=== PATIENT | male | born 1950 | race American Indian/Alaskan Native ===

== ENCOUNTER 2016-11-23 09:33 | Inpatient (IN) | payer MEDICARE ==
[2016-11-23 10:17] LABS: Basophils % (Auto) 0.6 % (0.0-1.8); Eosinophils % (Auto) 3.3 % (0.0-4.3); Hematocrit 41.1 % (35.5-45.6); Hemoglobin 13.4 gm/dl (11.8-15.2); Mean Corpuscular HGB Conc 33 % (32-34); Mean Corpuscular Hemoglobin 28 pg (28-32); Mean Corpuscular Volume 86 fl (84-94); Platelet Count 357 K/mm3 (140-440); Red Blood Count 4.78 M/mm3 (3.65-5.03); Red Cell Distribution Width 14.4 % (13.2-15.2); White Blood Count 6.9 K/mm3 (4.5-11.0)
[2016-11-23 11:02] LABS: Alanine Aminotransferase 13 units/L (7-56); Albumin 4.1 g/dL (3.9-5); Albumin/Globulin Ratio 1.4 %; Alkaline Phosphatase 43 units/L (35-129); Anion Gap 15 mmol/L; Blood Urea Nitrogen 14 mg/dL (9-20); Calcium 9.3 mg/dL (8.4-10.2); Carbon Dioxide 25 mmol/L (22-30); Chloride 103.4 mmol/L (98-107); Glucose 96 mg/dL (75-100); Lipase 24 units/L (13-60); Potassium 4.3 mmol/L (3.6-5.0); Sodium 139 mmol/L (137-145); Total Protein 7.1 g/dL (6.3-8.2)
[2016-11-23] MEDS ORDERED: MORPHINE IV ONE ×2 (11:10→18:33)
[2016-11-23] MEDS ORDERED: PEPCID IV ONE (11:11)
--- NOTE | 2016-11-23 11:13 | Emergency Department Report ---
HPI - General Chief Complaint: GI Bleed Time Seen by Provider: 11/23/16 10:44 - HPI HPI: This is a 65-year-old -F[place]ish male presents to the emergency department with complaint of rectal bleeding and/or GI bleed. The patient says that he is having some mild lower abdominal discomfort over the past 2 weeks. He recently went to see his PCP, Dr. Rocha, gave him something for pain. However the patient woke up this morning and had a bowel movement with bright red blood and then another bowel movement shortly afterwards that appeared to be more like dark tarry stools. He went back to see the primary care physician who allegedly did a sigmoid scope and saw diverticular hemorrhage. The patient has a history of this in the past and has required 2 admissions in the past for these symptoms. He denies any nausea, vomiting, fever but he does have some mild lower abdominal pain with radiation towards the back. He denies any numbness or paresthesias or any neurological deficits. No recent travel or sick contacts at home. He also has a history of hypertension. ED Past Medical Hx - Past Medical History Hx Hypertension: Yes Hx Congestive Heart Failure: No Hx GERD: Yes Hx Asthma: No Hx COPD: No Additional medical history: DIVERTICULOSIS OF LARGE INTESTINE WITH HEMORRHAGE - Surgical History Past Surgical History?: No - Social History Smoking Status: Current Every Day Smoker Substance Use Type: Alcohol, Prescribed - Medications Home Medications: Home Medications Medication Instructions Recorded Confirmed Last Taken Type Lisinopril [Zestril TAB] 20 mg PO QDAY 01/10/15 11/23/16 11/22/16 History Sildenafil Citrate [Viagra] 25 mg PO DAILY 11/23/16 11/23/16 11/09/16 History ED Review of Systems ROS: Stated complaint: ABD PAIN Other details as noted in HPI Comment: All other systems reviewed and negative Constitutional: denies: chills, fever Eyes: denies: eye pain, eye discharge, vision change ENT: denies: ear pain, throat pain Respiratory: denies: cough, shortness of breath, wheezing Cardiovascular: denies: chest pain, palpitations Gastrointestinal: abdominal pain, other (GI bleed). denies: nausea, vomiting Genitourinary: denies: urgency, dysuria Musculoskeletal: denies: joint swelling, arthralgia Skin: denies: rash, lesions Neurological: denies: headache, weakness, paresthesias Physical Exam - Physical Exam Vital Signs: Vital Signs 11/23/16 09:41 Temperature 97.3 F L Pulse Rate 51 L Respiratory 18 Rate Blood Pressure 162/96 O2 Sat by Pulse 97 Oximetry Physical Exam: GENERAL: The patient is well-developed well-nourished. HEENT: Normocephalic. Atraumatic. Extraocular motions are intact. Patient has moist mucous membranes. Pupils equal reactive to light bilaterally. NECK: Supple. Trachea is midline. CHEST/LUNGS: Clear to auscultation. There is no respiratory distress noted. HEART/CARDIOVASCULAR: Regular. There is mild bradycardia. There is no gallop rub or murmur. ABDOMEN: Abdomen is soft, nontender. Patient has normal bowel sounds. There is no abdominal distention. SKIN: Skin is warm and dry. NEURO: The patient is awake, alert, and oriented. The patient is cooperative. The patient has no focal neurologic deficits. The patient has normal speech. MUSCULOSKELETAL: There is no tenderness or deformity. There is no limitation range of motion. There is no evidence of acute injury. Rectal: Deferred ED Course Vital Signs 11/23/16 09:41 Temperature 97.3 F L Pulse Rate 51 L Respiratory 18 Rate Blood Pressure 162/96 O2 Sat by Pulse 97 Oximetry ED Medical Decision Making - Lab Data Result diagrams: 11/23/16 10:04 11/23/16 10:04 - EKG Data -: EKG Interpreted by Pa EKG shows normal: sinus rhythm, axis, intervals, QRS complexes, ST-T waves Rate: bradycardia (41 bpm) - EKG Data When compared to previous EKG there are: previous EKG unavailable Interpretation: other (marked sinus bradycardia) - Radiology Data Radiology results: report reviewed CT of the abdomen and pelvis with IV contrast was read by radiology as essentially a normal examination. - Medical Decision Making 65-year-old male presents emergency Department with a few weeks of some abdominal discomfort but really came in today because of rectal bleeding that appeared to be a diverticular hemorrhage at his PCPs office. Most the labs unremarkable. CT does not show any signs of diverticulitis, malignancy or any other acute process. Patient's only does not appear to need any type of transfusion at this time. However while the patient is in the emergency department he has had significant bradycardia going down into the 30s, all while awake, and is not on any type of beta amish or calcium channel amish or anything for rate control. This reason the patient will be admitted to the hospital for further evaluation and has been accepted for admission by the hospitalist, Dr. Tello. - Differential Diagnosis diverticulosis, diverticulitis, malignancy, colitis Critical Care Time: No Critical care attestation.: If time is entered above; I have spent that time in minutes in the direct care of this critically ill patient, excluding procedure time. ED Disposition Clinical Impression: Rectal bleeding, Bradycardia Hypertension Qualifiers: Hypertension type: essential hypertension Qualified Code(s): I10 - Essential ( primary) hypertension Disposition: 09 OP ADMIT IP TO THIS HOSP Is pt being admited?: Yes Does the pt Need Aspirin: No Condition: Stable Instructions: Hypertension (ED) Referrals: PRIMARY CARE, [Primary Care Provider] - 3-5 Days Forms: Accompanied Note Time of Disposition: 15:32
[2016-11-23 11:15] LABS: Bacteria,Urine 1+ /HPF (Negative); Bilirubin,Urine NEG (Negative); Blood,Urine NEG (Negative); Ketones,Urine NEG (Negative); Leukocyte Esterase,Urine NEG (Negative); Mucus,Urine FEW /HPF; Nitrite,Urine NEG (Negative); Protein,Urine <15 mg/dL mg/dL (Negative); Urobilinogen,Urine < 2.0 mg/dL (<2.0)
[2016-11-23 11:20] LABS: WBC,Urine < 1.0 /HPF (0.0-6.0)
[2016-11-23] MEDS ORDERED: NACL ONE ×2 (11:36→12:22)
--- NOTE | 2016-11-23 13:17 | Cat Scan Report ---
CT scan of abdomen and pelvis with IV contrast: History: Abdominal pain. Findings: Normal lung bases. No pleural or pericardial effusion. Normal liver spleen pancreas and gallbladder. Normal adrenals kidney parenchyma and bladder. No free intraperitoneal fluid or air. Prostate measures 3.3 x 4.1 cm. Gaseous colon with small volume stool in colon. No evidence of appendicitis or diverticulitis. Impression: Essentially negative CT scan of abdomen and CT scan of pelvis.
[2016-11-23 15:16] LABS: INR 1.13 (0.87-1.13)
[2016-11-23] MEDS ORDERED: APRESOLINE ONE (15:58)
[2016-11-23] MEDS ORDERED: MORPHINE ONE (18:32)
--- NOTE | 2016-11-23 21:11 | History and Physical Report ---
History of Present Illness Date of examination: 11/23/16 Date of admission: 11/23/16 17:57 Chief complaint: BRBPR 1 day History of present illness: HPI: This is a 65-year-old -[place]aur[place] male presents to the emergency department with complaint of rectal bleeding and/or GI bleed. The patient says that he is having some mild lower abdominal discomfort over the past 2 weeks. He recently went to see his PCP, Dr. Rocha, gave him something for pain. However the patient woke up this morning and had a bowel movement with bright red blood and then another bowel movement shortly afterwards that appeared to be more like dark tarry stools. He went back to see the primary care physician who allegedly did a sigmoid scope and saw diverticular hemorrhage. The patient has a history of this in the past and has required 2 admissions in the past for these symptoms. He denies any nausea, vomiting, fever but he does have some mild lower abdominal pain with radiation towards the back. He denies any numbness or paresthesias or any neurological deficits. No recent travel or sick contacts at home. He also has a history of hypertension. - Past Medical History Hx Hypertension: Yes Hx Congestive Heart Failure: No Hx GERD: Yes Hx Asthma: No Hx COPD: No Additional medical history: DIVERTICULOSIS OF LARGE INTESTINE WITH HEMORRHAGE - Surgical History Past Surgical History?: No - Social History Smoking Status: Current Every Day Smoker Substance Use Type: Alcohol, Prescribed Fam HX HTN - Medications Home Medications: Home Medications Medication Instructions Recorded Confirmed Last Taken Type Lisinopril [Zestril TAB] 20 mg PO QDAY 01/10/15 11/23/16 11/22/16 History Sildenafil Citrate [Viagra] 25 mg PO DAILY 11/23/16 11/23/16 11/09/16 History ED Review of Systems ROS: Stated complaint: ABD PAIN Other details as noted in HPI Comment: All other systems reviewed and negative Constitutional: denies: chills, fever Eyes: denies: eye pain, eye discharge, vision change ENT: denies: ear pain, throat pain Respiratory: denies: cough, shortness of breath, wheezing Cardiovascular: denies: chest pain, palpitations Gastrointestinal: abdominal pain, other (GI bleed). denies: nausea, vomiting Genitourinary: denies: urgency, dysuria Musculoskeletal: denies: joint swelling, arthralgia Skin: denies: rash, lesions Neurological: denies: headache, weakness, paresthesias Past History Past Medical History: hypertension Medications and Allergies Allergies Allergy/AdvReac Type Severity Reaction Status Date / Time No Known Allergies Allergy Verified 11/23/16 09:48 Home Medications Medication Instructions Recorded Confirmed Last Taken Type Lisinopril [Zestril TAB] 20 mg PO QDAY 01/10/15 11/23/16 11/22/16 History Sildenafil Citrate [Viagra] 25 mg PO DAILY 11/23/16 11/23/16 11/09/16 History Exam - Physical Exam Narrative exam: Lying comfortably - Constitutional Vitals: Temp Pulse Resp BP Pulse Ox 97.7 F 48 L 10 L 149/67 98 11/23/16 13:19 11/23/16 18:30 11/23/16 18:30 11/23/16 18:30 11/23/16 18:30 General appearance: Present: no acute distress, well-nourished - EENT Eyes: Present: PERRL ENT: hearing intact, clear oral mucosa - Neck Neck: Present: supple, normal ROM - Respiratory Respiratory effort: normal Respiratory: bilateral: CTA - Cardiovascular Heart rate: 41 Rhythm: regular Heart Sounds: Present: S1 & S2. Absent: rub, click - Extremities Extremities: no ischemia, pulses intact, pulses symmetrical, No edema Peripheral Pulses: within normal limits - Abdominal General gastrointestinal: Present: soft, non-tender, non-distended, normal bowel sounds Male genitourinary: Present: normal - Integumentary Integumentary: Present: clear, warm, dry - Musculoskeletal Musculoskeletal: gait normal, strength equal bilaterally - Psychiatric Psychiatric: appropriate mood/affect, intact judgment & insight - Neurologic Neurologic: CNII-XII intact, moves all extremities - Allied Health Allied health notes reviewed: nursing, case management Results - Labs CBC & Chem 7: 11/24/16 03:40 11/24/16 03:40 Labs: Laboratory Last Values WBC 6.9 K/mm3 (4.5-11.0) 11/23/16 10:04 RBC 4.78 M/mm3 (3.65-5.03) 11/23/16 10:04 Hgb 13.4 gm/dl (11.8-15.2) 11/23/16 10:04 Hct 41.1 % (35.5-45.6) 11/23/16 10:04 MCV 86 fl (84-94) 11/23/16 10:04 MCH 28 pg (28-32) 11/23/16 10:04 MCHC 33 % (32-34) 11/23/16 10:04 RDW 14.4 % (13.2-15.2) 11/23/16 10:04 Plt Count 357 K/mm3 (140-440) 11/23/16 10:04 Lymph % (Auto) 33.1 % (13.4-35.0) 11/23/16 10:04 [place] % (Auto) 9.8 % (0.0-7.3) H 11/23/16 10:04 Eos % (Auto) 3.3 % (0.0-4.3) 11/23/16 10:04 Baso % (Auto) 0.6 % (0.0-1.8) 11/23/16 10:04 Lymph # 2.3 K/mm3 (1.2-5.4) 11/23/16 10:04 [place] # 0.7 K/mm3 (0.0-0.8) 11/23/16 10:04 Eos # 0.2 K/mm3 (0.0-0.4) 11/23/16 10:04 Baso # 0.0 K/mm3 (0.0-0.1) 11/23/16 10:04 Seg Neutrophils % 53.2 % (40.0-70.0) 11/23/16 10:04 Seg Neutrophils # 3.6 K/mm3 (1.8-7.7) 11/23/16 10:04 PT 14.4 Sec. (12.2-14.9) 11/23/16 14:39 INR 1.13 (0.87-1.13) 11/23/16 14:39 APTT 31.0 Sec. (24.2-36.6) 11/23/16 14:39 Sodium 139 mmol/L (137-145) 11/23/16 10:04 Potassium 4.3 mmol/L (3.6-5.0) 11/23/16 10:04 Chloride 103.4 mmol/L (98-107) 11/23/16 10:04 Carbon Dioxide 25 mmol/L (22-30) 11/23/16 10:04 Anion Gap 15 mmol/L 11/23/16 10:04 BUN 14 mg/dL (9-20) 11/23/16 10:04 Creatinine 1.0 mg/dL (0.8-1.5) 11/23/16 10:04 Estimated GFR > 60 ml/min 11/23/16 10:04 BUN/Creatinine Ratio 14.00 % 11/23/16 10:04 Glucose 96 mg/dL (75-100) 11/23/16 10:04 Calcium 9.3 mg/dL (8.4-10.2) 11/23/16 10:04 Total Bilirubin 0.30 mg/dL (0.1-1.2) 11/23/16 10:04 AST 13 units/L (5-40) 11/23/16 10:04 ALT 13 units/L (7-56) 11/23/16 10:04 Alkaline Phosphatase 43 units/L (35-129) 11/23/16 10:04 Troponin T < 0.010 ng/mL (0.00-0.029) 11/23/16 14:39 Total Protein 7.1 g/dL (6.3-8.2) 11/23/16 10:04 Albumin 4.1 g/dL (3.9-5) 11/23/16 10:04 Albumin/Globulin Ratio 1.4 % 11/23/16 10:04 Lipase 24 units/L (13-60) 11/23/16 10:04 Urine Color Straw (Yellow) 11/23/16 10:12 Urine Turbidity Clear (Clear) 11/23/16 10:12 Urine pH 5.0 (5.0-7.0) 11/23/16 10:12 Ur Specific [place] 1.011 (1.003-1.030) 11/23/16 10:12 Urine Protein <15 mg/dl mg/dL (Negative) 11/23/16 10:12 Urine Glucose (UA) Neg mg/dL (Negative) 11/23/16 10:12 Urine Ketones Neg mg/dL (Negative) 11/23/16 10:12 Urine Blood Neg (Negative) 11/23/16 10:12 Urine Nitrite Neg (Negative) 11/23/16 10:12 Urine Bilirubin Neg (Negative) 11/23/16 10:12 Urine Urobilinogen < 2.0 mg/dL (<2.0) 11/23/16 10:12 Ur Leukocyte Esterase Neg (Negative) 11/23/16 10:12 Urine WBC (Auto) < 1.0 /HPF (0.0-6.0) 11/23/16 10:12 Urine RBC (Auto) 4.0 /HPF (0.0-6.0) 11/23/16 10:12 U Epithel Cells (Auto) < 1.0 /HPF (0-13.0) 11/23/16 10:12 Urine Bacteria (Auto) 1+ /HPF (Negative) 11/23/16 10:12 Urine Mucus Few /HPF 11/23/16 10:12 Short CBC 11/23/16 11/23/16 11/24/16 Range/Units 10:04 22:07 03:40 WBC 6.9 9.5 (4.5-11.0) K/mm3 Hgb 13.4 13.0 12.9 (11.8-15.2) gm/dl Hct 41.1 39.6 39.3 (35.5-45.6) % Plt Count 357 357 (140-440) K/mm3 BMP 11/23/16 11/24/16 10:04 03:40 Sodium 139 140 Potassium 4.3 3.8 Chloride 103.4 102.5 Carbon Dioxide 25 22 BUN 14 12 Creatinine 1.0 1.0 Glucose 96 104 H Calcium 9.3 9.0 Cardiac Enzymes 11/23/16 Range/Units 14:39 Troponin T < 0.010 (0.00-0.029) ng/mL Liver Function 11/23/16 11/24/16 Range/Units 10:04 03:40 Total Bilirubin 0.30 0.50 (0.1-1.2) mg/dL AST 13 12 (5-40) units/L ALT 13 12 (7-56) units/L Alkaline Phosphatase 43 39 (35-129) units/L Albumin 4.1 3.9 (3.9-5) g/dL Urine 11/23/16 Range/Units 10:12 Urine Color Straw (Yellow) Urine pH 5.0 (5.0-7.0) Ur Specific [place] 1.011 (1.003-1.030) Urine Protein <15 mg/dl (Negative) mg/dL Urine Glucose (UA) Neg (Negative) mg/dL - Imaging and Cardiology EKG: report reviewed (41/min Marked sinus Bradycardia) Assessment and Plan Advance Directives: Yes (Full code) VTE prophylaxis?: Chemical Plan of care discussed with patient/family: Yes - Patient Problems (1) Lower GI bleed Current Visit: Yes Status: Acute Plan to address problem: Probably Diverticular.Had similar episode s once in 2014 and 2016 each.Doesn't remember the diagnosis. GI consult requested. Transfuse PRBC if necessary. (2) Bradycardia Current Visit: Yes Status: Chronic Plan to address problem: Asymptomatic Probably vasovagal.Will consult cardiology if persistent and symptomatic (3) Hypertension Current Visit: Yes Status: Chronic Qualifiers: Hypertension type: essential hypertension Qualified Code(s): I10 - Essential (primary) hypertension Plan to address problem: Patient initiated on Catapress patch (4) GERD (gastroesophageal reflux disease) Current Visit: Yes Status: Acute Qualifiers: Esophagitis presence: without esophagitis Qualified Code(s): K21.9 - Gastro -esophageal reflux disease without esophagitis Plan to address problem: IV Famotidine for now (5) Nicotine dependence Current Visit: Yes Status: Chronic Qualifiers: Nicotine product type: cigarettes Substance use status: S Plan to address problem: Nicoderm patch initiated (6) DVT prophylaxis Current Visit: No Status: Acute Plan to address problem: Only SCD's
[2016-11-23] MEDS ORDERED: TYLENOL PO PRN (21:12)
[2016-11-23] MEDS ORDERED: ZOFRAN IV PRN (21:12)
[2016-11-23] MEDS ORDERED: MILK OF MAGNESIA PO PRN (21:12)
[2016-11-23] MEDS ORDERED: DULCOLAX PR PRN (21:12)
[2016-11-23] MEDS ORDERED: PHENERGAN PR PRN (21:12)
[2016-11-23] MEDS ORDERED: DILAUDID IV PRN (21:12)
[2016-11-23] MEDS ORDERED: REGLAN IV PRN (21:12)
[2016-11-23] MEDS ORDERED: PEPCID IV SCH (22:00)
[2016-11-23] MEDS: D5NS 1,000 ML IV SCH (22:00)
[2016-11-23] MEDS ORDERED: PROTONIX 80 MG in NACL 0.9% 100 ML IV SCH (22:00)
[2016-11-23 22:21] LABS: Hematocrit 39.6 % (35.5-45.6)
[2016-11-24 04:26] LABS: Basophils % (Auto) 0.6 % (0.0-1.8); Eosinophils % (Auto) 2.5 % (0.0-4.3); Hematocrit 39.3 % (35.5-45.6); Hemoglobin 12.9 gm/dl (11.8-15.2); Mean Corpuscular HGB Conc 33 % (32-34); Mean Corpuscular Hemoglobin 28 pg (28-32); Mean Corpuscular Volume 85 fl (84-94); Platelet Count 357 K/mm3 (140-440); Red Blood Count 4.63 M/mm3 (3.65-5.03); Red Cell Distribution Width 14.6 % (13.2-15.2); White Blood Count 9.5 K/mm3 (4.5-11.0)
[2016-11-24 04:43] LABS: Alanine Aminotransferase 12 units/L (7-56); Albumin 3.9 g/dL (3.9-5); Albumin/Globulin Ratio 1.4 %; Alkaline Phosphatase 39 units/L (35-129); Anion Gap 19 mmol/L; Blood Urea Nitrogen 12 mg/dL (9-20); Carbon Dioxide 22 mmol/L (22-30); Chloride 102.5 mmol/L (98-107); Glucose 104 mg/dL (75-100); Potassium 3.8 mmol/L (3.6-5.0); Sodium 140 mmol/L (137-145); Total Protein 6.6 g/dL (6.3-8.2)
[2016-11-24 09:29] LABS: Hematocrit 40.2 % (35.5-45.6)
[2016-11-24] MEDS: HABITROL TD SCH (09:57)
[2016-11-24] MEDS ORDERED: CATAPRES-TTS PATCH TD SCH (10:00)
[2016-11-24] MEDS ORDERED: FLEET PR NR (11:00)
[2016-11-24] MEDS: D5NS 1,000 ML IV SCH (11:14)
--- NOTE | 2016-11-24 11:46 | Gastroenterology Consultation ---
History of Present Illness - Reason for Consult Consult date: 11/24/16 GI bleeding Requesting physician: ANYA DEGROOT - History of Present Illness Mr. Daigle is a 65 y/o male admitted with a one day hx of hematochezia with noted dark maroon stool as well. He was seen by his PCP and sent to the ED. H/H remains stable and the patient has had no further bleeding since yesterday. CT of A/P negative. He has a hx in of suspected diverticular bleeding. He underwent EGD and colonoscopy in 2015 iwth normal EGD and fresh blood in the TI, suspected Diverticular bleeding. The patient was recommended to have a pill cam at that time. He denies abdominal pain but reports right flank pain. No fever or chills. He was also found to have bradycardia on admission. Past History Past Medical History: hypertension Past Surgical History: Other (EGD/Colonosocoopy in 2014) Social history: smoking Family history: no significant family history Medications and Allergies Allergies Allergy/AdvReac Type Severity Reaction Status Date / Time No Known Allergies Allergy Verified 11/23/16 09:48 Home Medications Medication Instructions Recorded Confirmed Last Taken Type Lisinopril [Zestril TAB] 20 mg PO QDAY 01/10/15 11/23/16 11/22/16 History Sildenafil Citrate [Viagra] 25 mg PO DAILY 11/23/16 11/23/16 11/09/16 History Active Meds: Active Medications Acetaminophen (Tylenol) 650 mg PO Q4H PRN PRN Reason: Pain MILD(1-3)/Fever >100.5/KRUEGER Bisacodyl (Dulcolax) 10 mg MS QDAY PRN PRN Reason: Constipation unrelieved by MOM Clonidine HCl (Catapres-Tts Patch) 0.2 mg TD Fr CECELIA Hydromorphone HCl (Dilaudid) 0.5 mg IV Q3H PRN PRN Reason: Pain , Severe (7-10) Dextrose/Sodium Chloride (D5ns) 1,000 mls @ 75 mls/hr IV DIRECT CECELIA Last Admin: 11/24/16 11:14 Dose: 75 mls/hr Pantoprazole Sodium 80 mg/ (Sodium Chloride) 100 mls @ 10 mls/hr IV DIRECT CECELIA PRN Reason: 8 MG/HR Last Admin: 11/23/16 22:30 Dose: 8 mg/hr, 10 mls/hr Magnesium Hydroxide (Milk Of Magnesia) 30 ml PO Q4H PRN PRN Reason: Constipation Metoclopramide HCl (Reglan) 10 mg IV Q6H PRN PRN Reason: Nausea And Vomiting Nicotine (Habitrol) 21 mg TD QDAY CECELIA Last Admin: 11/24/16 09:57 Dose: 21 mg Ondansetron HCl (Zofran) 4 mg IV Q8H PRN PRN Reason: N/V unrelieved by Reglan Promethazine HCl (Phenergan) 25 mg MS Q6H PRN PRN Reason: N/V IF NPO AND NO IV ACCESS Sodium Biphosphate/Sodium Phosphate (Fleet) 266 ml MS ONCE NR Stop: 11/24/16 14:00 Review of Systems - Review of Systems All systems: negative Gastrointestinal: BRBPR, hematochezia Exam - Constitutional Vital Signs: Temp Pulse Resp BP Pulse Ox 98 F 46 L 18 151/72 97 11/24/16 10:00 11/24/16 10:00 11/24/16 10:00 11/24/16 10:00 11/24/16 10:00 General appearance: no acute distress - EENT Eyes: EOM intact ENT: hearing intact - Neck Neck: supple - Respiratory Respiratory: bilateral: CTA - Cardiovascular Rhythm: regular Heart Sounds: Present: S1 & S2 Extremities: pulses intact - Gastrointestinal General gastrointestinal: Present: soft, non-tender, normal bowel sounds - Integumentary Integumentary: Present: clear, warm - Neurologic Neurological: alert and oriented x3 - Psychiatric Psychiatric: appropriate mood/affect, cooperative - Labs CBC & Chem 7: 11/24/16 09:00 11/24/16 03:40 Lab Results: Laboratory Results - last 24 hr 11/23/16 11/23/16 11/24/16 21:54 22:07 03:40 WBC 9.5 RBC 4.63 Hgb 13.0 12.9 Hct 39.6 39.3 MCV 85 MCH 28 MCHC 33 RDW 14.6 Plt Count 357 Lymph % (Auto) 24.8 [place] % (Auto) 8.6 H Eos % (Auto) 2.5 Baso % (Auto) 0.6 Lymph # 2.4 [place] # 0.8 Eos # 0.2 Baso # 0.1 Seg Neutrophils % 63.5 Seg Neutrophils # 6.1 Sodium Potassium Chloride Carbon Dioxide Anion Gap BUN Creatinine Estimated GFR BUN/Creatinine Ratio Glucose POC Glucose 72 Calcium Total Bilirubin AST ALT Alkaline Phosphatase Total Protein Albumin Albumin/Globulin Ratio 11/24/16 11/24/16 03:40 09:00 WBC RBC Hgb 13.0 Hct 40.2 MCV MCH MCHC RDW Plt Count Lymph % (Auto) [place] % (Auto) Eos % (Auto) Baso % (Auto) Lymph # [place] # Eos # Baso # Seg Neutrophils % Seg Neutrophils # Sodium 140 Potassium 3.8 Chloride 102.5 Carbon Dioxide 22 Anion Gap 19 BUN 12 Creatinine 1.0 Estimated GFR > 60 BUN/Creatinine Ratio 12.00 Glucose 104 H POC Glucose Calcium 9.0 Total Bilirubin 0.50 AST 12 ALT 12 Alkaline Phosphatase 39 Total Protein 6.6 Albumin 3.9 Albumin/Globulin Ratio 1.4 Assessment and Plan 1 .BRBPR/ Hematochezia. -Patient describes what is suspected as a diverticular bleed, now resolved. -H/H stable -Ok for diet -Monitor overnight for bleeding. If patient bleeds, will need stat RBC scan vs CTA. Consider pill cam as outpatient. -WIll follow.
--- NOTE | 2016-11-24 13:38 | Progress Note ---
History Interval history: Hematochezia. Etiology is likely secondary to diverticular bleed. Continue to follow H&H. Await GI recommendations. If patient rebleeds, we'll consider RBC scan versus CTA. Bradycardia. Radiology consultation pending. Hypertension. Resume antihypertensive medications. GERD. Continue Pepcid. DVT prophylaxis. Continue SCDs. No anticoagulation given hematochezia. Hospitalist Physical - Constitutional Vitals: Temp Pulse Resp BP Pulse Ox 98 F 46 L 18 151/72 97 11/24/16 10:00 11/24/16 10:00 11/24/16 10:00 11/24/16 10:00 11/24/16 10:00 General appearance: Present: no acute distress, well-nourished Results - Labs CBC & Chem 7: 11/24/16 09:00 11/24/16 03:40 Labs: Laboratory Last Values WBC 9.5 K/mm3 (4.5-11.0) 11/24/16 03:40 RBC 4.63 M/mm3 (3.65-5.03) 11/24/16 03:40 Hgb 13.0 gm/dl (11.8-15.2) 11/24/16 09:00 Hct 40.2 % (35.5-45.6) 11/24/16 09:00 MCV 85 fl (84-94) 11/24/16 03:40 MCH 28 pg (28-32) 11/24/16 03:40 MCHC 33 % (32-34) 11/24/16 03:40 RDW 14.6 % (13.2-15.2) 11/24/16 03:40 Plt Count 357 K/mm3 (140-440) 11/24/16 03:40 Lymph % (Auto) 24.8 % (13.4-35.0) 11/24/16 03:40 [place] % (Auto) 8.6 % (0.0-7.3) H 11/24/16 03:40 Eos % (Auto) 2.5 % (0.0-4.3) 11/24/16 03:40 Baso % (Auto) 0.6 % (0.0-1.8) 11/24/16 03:40 Lymph # 2.4 K/mm3 (1.2-5.4) 11/24/16 03:40 [place] # 0.8 K/mm3 (0.0-0.8) 11/24/16 03:40 Eos # 0.2 K/mm3 (0.0-0.4) 11/24/16 03:40 Baso # 0.1 K/mm3 (0.0-0.1) 11/24/16 03:40 Seg Neutrophils % 63.5 % (40.0-70.0) 11/24/16 03:40 Seg Neutrophils # 6.1 K/mm3 (1.8-7.7) 11/24/16 03:40 PT 14.4 Sec. (12.2-14.9) 11/23/16 14:39 INR 1.13 (0.87-1.13) 11/23/16 14:39 APTT 31.0 Sec. (24.2-36.6) 11/23/16 14:39 Sodium 140 mmol/L (137-145) 11/24/16 03:40 Potassium 3.8 mmol/L (3.6-5.0) 11/24/16 03:40 Chloride 102.5 mmol/L (98-107) 11/24/16 03:40 Carbon Dioxide 22 mmol/L (22-30) 11/24/16 03:40 Anion Gap 19 mmol/L 11/24/16 03:40 BUN 12 mg/dL (9-20) 11/24/16 03:40 Creatinine 1.0 mg/dL (0.8-1.5) 11/24/16 03:40 Estimated GFR > 60 ml/min 11/24/16 03:40 BUN/Creatinine Ratio 12.00 % 11/24/16 03:40 Glucose 104 mg/dL (75-100) H 11/24/16 03:40 POC Glucose 72 (70-105) 11/23/16 21:54 Calcium 9.0 mg/dL (8.4-10.2) 11/24/16 03:40 Total Bilirubin 0.50 mg/dL (0.1-1.2) 11/24/16 03:40 AST 12 units/L (5-40) 11/24/16 03:40 ALT 12 units/L (7-56) 11/24/16 03:40 Alkaline Phosphatase 39 units/L (35-129) 11/24/16 03:40 Troponin T < 0.010 ng/mL (0.00-0.029) 11/23/16 14:39 Total Protein 6.6 g/dL (6.3-8.2) 11/24/16 03:40 Albumin 3.9 g/dL (3.9-5) 11/24/16 03:40 Albumin/Globulin Ratio 1.4 % 11/24/16 03:40 Lipase 24 units/L (13-60) 11/23/16 10:04 Urine Color Straw (Yellow) 11/23/16 10:12 Urine Turbidity Clear (Clear) 11/23/16 10:12 Urine pH 5.0 (5.0-7.0) 11/23/16 10:12 Ur Specific [place] 1.011 (1.003-1.030) 11/23/16 10:12 Urine Protein <15 mg/dl mg/dL (Negative) 11/23/16 10:12 Urine Glucose (UA) Neg mg/dL (Negative) 11/23/16 10:12 Urine Ketones Neg mg/dL (Negative) 11/23/16 10:12 Urine Blood Neg (Negative) 11/23/16 10:12 Urine Nitrite Neg (Negative) 11/23/16 10:12 Urine Bilirubin Neg (Negative) 11/23/16 10:12 Urine Urobilinogen < 2.0 mg/dL (<2.0) 11/23/16 10:12 Ur Leukocyte Esterase Neg (Negative) 11/23/16 10:12 Urine WBC (Auto) < 1.0 /HPF (0.0-6.0) 11/23/16 10:12 Urine RBC (Auto) 4.0 /HPF (0.0-6.0) 11/23/16 10:12 U Epithel Cells (Auto) < 1.0 /HPF (0-13.0) 11/23/16 10:12 Urine Bacteria (Auto) 1+ /HPF (Negative) 11/23/16 10:12 Urine Mucus Few /HPF 11/23/16 10:12
--- NOTE | 2016-11-24 15:19 | Admit Criteria Form ---
Admission Criteria Documentation: GASTROINTESTINAL BLEEDING, LOWER Clinical Indications for Admission to Inpatient Care ([place]/check or initial the applicable condition/criteria) I. Active gross bleeding per rectum. II. Failure to control bleeding after colonoscopy III. Unstable comorbid illness (eg, hepatic, pulmonary,or cardiac) IV. Coagulopathy(eg, advanced liver disease, irreversible anticoagulation) V. Suspected or known ischemic colitis(6) . Previous aortic graft placement or known aortic aneurysm [X]VII. Inpatient admission required rather than observation care (Also use Gastrointestinal Bleeding,Lower: Observation Care as appropriate) because of 1 or more of the following(7)( 8): a) Hemodynamic instability b) Anemia requiring inpatient admission as indicated by ALL of the followin) Presence of significant clinical finding indicated by 1 or more of the following: A. Tachycardia for age B. Orthostatic vital sign changes C. Altered mental status D. Heart failure E. Chest pain F. Exertional dyspnea G. Other findings suggesting inadequate perfusion (e.g., peripheral or myocardial ischemia, end organ dysfunction) 2) Initial (e.g., emergency department, observation care) treatment with transfusion or volume replacement is judged inappropriate (due to severity of the finding ) or has been ineffective c) Severe pain requiring acute inpatient management d) Altered mental status that is severe or persistent e) Absent bowel sounds with complete ileus f) Signs of intestinal obstruction or peritonitis [A] g) High-risklow platelet count h) Severe electrolyte abnormalities requiring inpatient care i) Acute renal failure j) High fever or infection requiring inpatient admission as indicated by 1 or more of the following (10)(11): 1) Appropriate outpatient or observation care antimicrobial treatment unavailable, not effective, or not feasible 2) Documented bacteremia 3) Temperature greater than 104.9 degrees F (40.5 degrees C) (oral) 4) Temperature greater than 103.1 degrees F (39.5 degrees C) (oral) or less than 96.8 degrees F (36 degrees C) (rectal) that does not respond to all emergency treatment measures k) Immediate inpatient surgeryneeded l) Parenteral nutrition regimen that must be implemented on inpatient basis [X] m) Other condition, treatment or monitoring requiring inpatient admission Extended stay beyond goal length of stay may be needed for(3)(4)(24): a) Emergency surgery(25) b) Coagulation abnormalities(26) c) Recurrent or persistent bleeding, continued vital sign instability(20)(25)(27 )(28) d) Active comorbidities (eg, renal insufficiency, heart failure, pre- existingliver disease)(22) The original [facility] [employer] content created by [facility] has been revised. The portions of the content which have been revised are identified through the use of italic text or in bold, and [facility] has neither reviewed nor approved the modified material. All other unmodified content is copyright [facility]. Please see references footnoted in the original [facility] edition 2017 Admission Criteria Met: Yes
[2016-11-24 16:15] LABS: Hemoglobin 13.2 gm/dl (11.8-15.2)
[2016-11-24 16:27] LABS: Hematocrit 39.7 % (35.5-45.6)
--- NOTE | 2016-11-24 16:46 | Post Operative Note ---
Pre-op diagnosis: gi bleed Post-op diagnosis: same Procedure: EGD: probable Hung's - hiatal hernia - mild gastritis (bx's) - 8 mm cratered white based ulcer duodenum bulb (bx's) - otherwise benign Anesthesia: MAC Surgeon: FANI MILES Estimated blood loss: none Pathology: list Specimen disposition: to lab Condition: stable Disposition: floor
--- NOTE | 2016-11-24 16:46 | Consultation ---
History of Present Illness Consult date: 11/24/16 Requesting physician: KENYA RICE Consult reason: bradycardia History of present illness: The pt is a 65 YO male with a past medical history significant for HTN, recurrent lower GI bleeding, tobacco use and bradycardia (noted since 2014). He is previously unknown to our practice. He presented with c/o rectal bleeding a dark stools since yesterday AM. He was noted to have sinus bradycardia following admission and thus cardiology has been consulted. On evaluation, pt has no complaints. On evaluation, he denies any history of chest pain, palpitations, n/v, diaphoresis, dizziness, or syncope. He does admit to occasional dizziness over the past several years if he has a "coughing spell". Past History Past Medical History: hypertension Past Surgical History: Other (EGD/Colonosocoopy in 2014) Social history: smoking Family history: no significant family history Medications and Allergies Allergies Allergy/AdvReac Type Severity Reaction Status Date / Time No Known Allergies Allergy Verified 11/23/16 09:48 Home Medications Medication Instructions Recorded Confirmed Last Taken Type Lisinopril [Zestril TAB] 20 mg PO QDAY 01/10/15 11/23/16 11/22/16 History Sildenafil Citrate [Viagra] 25 mg PO DAILY 11/23/16 11/23/16 11/09/16 History Active Meds: Active Medications Acetaminophen (Tylenol) 650 mg PO Q4H PRN PRN Reason: Pain MILD(1-3)/Fever >100.5/KRUEGER Bisacodyl (Dulcolax) 10 mg WI QDAY PRN PRN Reason: Constipation unrelieved by MOM Clonidine HCl (Catapres-Tts Patch) 0.2 mg TD Fr CECELIA Hydromorphone HCl (Dilaudid) 0.5 mg IV Q3H PRN PRN Reason: Pain , Severe (7-10) Dextrose/Sodium Chloride (D5ns) 1,000 mls @ 75 mls/hr IV DIRECT CECELIA Last Admin: 11/24/16 11:14 Dose: 75 mls/hr Pantoprazole Sodium 80 mg/ (Sodium Chloride) 100 mls @ 10 mls/hr IV DIRECT CECELIA PRN Reason: 8 MG/HR Last Admin: 11/23/16 22:30 Dose: 8 mg/hr, 10 mls/hr Magnesium Hydroxide (Milk Of Magnesia) 30 ml PO Q4H PRN PRN Reason: Constipation Metoclopramide HCl (Reglan) 10 mg IV Q6H PRN PRN Reason: Nausea And Vomiting Nicotine (Habitrol) 21 mg TD QDAY CECELIA Last Admin: 11/24/16 09:57 Dose: 21 mg Ondansetron HCl (Zofran) 4 mg IV Q8H PRN PRN Reason: N/V unrelieved by Reglan Promethazine HCl (Phenergan) 25 mg WI Q6H PRN PRN Reason: N/V IF NPO AND NO IV ACCESS Review of Systems All systems: negative Cardiovascular: no chest pain, no syncope, no lightheadedness, no shortness of breath, no dyspnea on exertion Gastrointestinal: melena, hematochezia, no abdominal pain, no nausea, no vomiting, no diarrhea, no constipation Physical Examination Vital Signs Temp Pulse Resp BP Pulse Ox 97.3 F L 51 L 18 162/96 97 11/23/16 09:41 11/23/16 09:41 11/23/16 09:41 11/23/16 09:41 11/23/16 09:41 General appearance: no acute distress HEENT: Positive: PERRL, Normocephaly, Mucus Membranes Moist Neck: Positive: neck supple, trachea midline Cardiac: Positive: S1/S2, Bradycardia Lungs: Positive: Normal Exam, clear to auscultation, Normal Breath Sounds Neuro: Positive: Grossly Intact, Cranial Nerve 2-12 Intact Abdomen: Positive: Soft, Active Bowel Sounds. Negative: Tender Skin: Positive: Clear. Negative: Rash, Wound Musculoskeletal: No Fluid Collection, No Pain, Normal Range of Motion Results 11/24/16 15:47 11/24/16 03:40 Cardiac Enzymes 11/24/16 Range/Units 03:40 AST 12 (5-40) units/L CBC 11/23/16 11/24/16 11/24/16 Range/Units 22:07 03:40 09:00 WBC 9.5 (4.5-11.0) K/mm3 RBC 4.63 (3.65-5.03) M/mm3 Hgb 13.0 12.9 13.0 (11.8-15.2) gm/dl Hct 39.6 39.3 40.2 (35.5-45.6) % Plt Count 357 (140-440) K/mm3 Lymph # 2.4 (1.2-5.4) K/mm3 [place] # 0.8 (0.0-0.8) K/mm3 Eos # 0.2 (0.0-0.4) K/mm3 Baso # 0.1 (0.0-0.1) K/mm3 11/24/16 Range/Units 15:47 WBC (4.5-11.0) K/mm3 RBC (3.65-5.03) M/mm3 Hgb 13.2 (11.8-15.2) gm/dl Hct 39.7 (35.5-45.6) % Plt Count (140-440) K/mm3 Lymph # (1.2-5.4) K/mm3 [place] # (0.0-0.8) K/mm3 Eos # (0.0-0.4) K/mm3 Baso # (0.0-0.1) K/mm3 Comprehensive Metabolic Panel 11/24/16 Range/Units 03:40 Sodium 140 (137-145) mmol/L Potassium 3.8 (3.6-5.0) mmol/L Chloride 102.5 (98-107) mmol/L Carbon Dioxide 22 (22-30) mmol/L BUN 12 (9-20) mg/dL Creatinine 1.0 (0.8-1.5) mg/dL Glucose 104 H (75-100) mg/dL Calcium 9.0 (8.4-10.2) mg/dL AST 12 (5-40) units/L ALT 12 (7-56) units/L Alkaline Phosphatase 39 (35-129) units/L Total Protein 6.6 (6.3-8.2) g/dL Albumin 3.9 (3.9-5) g/dL - Imaging and Cardiology EKG: image reviewed EKG interpretations - Telemetry EKG Rhythm: Sinus Bradycardia - EKG Sinus rhythms and dysrhythmias: sinus bradycardia Assessment and Plan Obtain thyroid panel. Optimize anti-hypertensive regimen - d/c clonidine as this may be contributing to bradycardia and initiate hydralazine. D/c lisinopril. If thyroid panel WNL, pt may discharge home from cardiology standpoint and will plan for echo as OP. Recommend pt to follow up in our office with Dr. Skaggs within 1 week of hospital discharge ([phone]). The patient has been seen in conjunction with Dr. Skaggs who agrees with the assessment and plan of care. - Patient Problems (1) Sinus bradycardia Current Visit: Yes Status: Chronic (2) Lower GI bleed Current Visit: Yes Status: Acute (3) GERD (gastroesophageal reflux disease) Current Visit: Yes Status: Chronic Qualifiers: Esophagitis presence: without esophagitis Qualified Code(s): K21.9 - Gastro -esophageal reflux disease without esophagitis (4) Hypertension Current Visit: Yes Status: Chronic Qualifiers: Hypertension type: essential hypertension Qualified Code(s): I10 - Essential (primary) hypertension (5) Tobacco use Current Visit: Yes Status: Chronic
[2016-11-24] MEDS: APRESOLINE PO SCH (23:04)
[2016-11-25] MEDS: D5NS 1,000 ML IV SCH (05:47)
[2016-11-25 09:13] VITALS: BP 141/76
--- NOTE | 2016-11-25 09:23 | Discharge Summary ---
Providers - Providers Date of Admission: 11/23/16 17:57 Date of discharge: 11/25/16 Attending physician: KENYA RICE 11/23/16 21:12 Consult to Physician [CONS] Routine Consulting Provider: EVONNE HUERTAS Reason For Exam: GI Bleed Place consult to:: ANSWERING SERVICE Notified:: YES Phone number called:: [phone] If yes, spoke with:: CORTEZ Time called:: 08:49 Comment:: DIEGO 11/24/16 13:39 Consult to Physician [CONS] Routine Consulting Provider: PADMINI HOUSTON Reason For Exam: bradycardia Place consult to:: office Notified:: yes Phone number called:: [phone] Was contact made?: Yes If yes, spoke with:: cortez Time called:: 16:25 Comment:: diego Primary care physician: VAHID TORRES Hospitalization Reason for admission: hematochezia Condition: Stable Hospital course: Mr. Daigle is a 65 y/o male admitted with a one day hx of hematochezia with noted dark maroon stool as well. He was seen by his PCP and sent to the ED. H/H remains stable and the patient has had no further bleeding since admission. CT of A/P negative. He has a hx in 2014/2015 of suspected diverticular bleeding. He underwent EGD and colonoscopy in 2015 iwth normal EGD and fresh blood in the TI, suspected Diverticular bleeding. The patient was recommended to have a pill cam at that time. He denies abdominal pain but reports right flank pain. No fever or chills. He was also found to have bradycardia on admission. The patient was seen by cardiology and GI consultation. 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 H&H remained stable and patient could discharge with PPI prescription. Cardiology evaluated the bradycardia with thyroid panel that was found to be normal. Antihypertensive regimen was changed. Clonidine was discontinued as this may be contributing to bradycardia and initiated hydralazine which may create reflex tachycardia to offset bradycardia. Lisinopril was also discontinued. Cardiology recommended pt to follow up with Dr. Houston within 1 week of hospital discharge ). Dedicated discharge time 35 minutes. Disposition: TO HOME OR SELFCARE Time spent for discharge: 35 - Discharge Diagnoses (1) Gastritis and duodenitis Status: Acute (2) Duodenal ulcer Status: Acute (3) Nicotine dependence Status: Acute Qualifiers: Nicotine product type: N Substance use status: S (4) Rectal bleeding Status: Acute (5) Bradycardia Status: Chronic (6) GERD (gastroesophageal reflux disease) Status: Chronic Qualifiers: Esophagitis presence: without esophagitis Qualified Code(s): K21.9 - Gastro -esophageal reflux disease without esophagitis (7) Hypertension Status: Chronic Qualifiers: Hypertension type: essential hypertension Qualified Code(s): I10 - Essential (primary) hypertension Core Measure Documentation - Palliative Care Palliative Care/ Comfort Measures: Not Applicable - Core Measures Any of the following diagnoses?: none Exam - Constitutional Vitals: Temp Pulse Resp BP Pulse Ox 98.3 F 50 L 18 141/76 100 11/25/16 08:58 11/25/16 08:58 11/25/16 08:58 11/25/16 08:58 11/25/16 08:58 General appearance: Present: no acute distress, well-nourished - EENT Eyes: Present: PERRL ENT: hearing intact, clear oral mucosa - Neck Neck: Present: supple, normal ROM - Respiratory Respiratory effort: normal Respiratory: bilateral: CTA - Cardiovascular Heart Sounds: Present: S1 & S2. Absent: rub, click - Extremities Extremities: pulses symmetrical, No edema Peripheral Pulses: within normal limits - Abdominal General gastrointestinal: Present: soft, non-tender, non-distended, normal bowel sounds Male genitourinary: Present: normal - Integumentary Integumentary: Present: clear, warm, dry - Musculoskeletal Musculoskeletal: gait normal, strength equal bilaterally - Psychiatric Psychiatric: appropriate mood/affect, intact judgment & insight - Neurologic Neurologic: CNII-XII intact, moves all extremities Plan Activity: no restrictions Weight Bearing Status: Full Weight Bearing Diet: regular Follow up with: PRIMARY CAREMD [Referring] - 3-5 Days PADMINI HOUSTON MD [Staff Physician] - 7 Days FANI MILES MD [Staff Physician] - 7 Days Forms: Accompanied Note Prescriptions: hydrALAZINE [Apresoline TAB] 50 mg PO BID #60 tablet Nicotine [Habitrol] 21 mg TD QDAY #30 patch Pantoprazole [Protonix] 40 mg PO BID #60 tablet
[2016-11-25] MEDS: APRESOLINE PO SCH (09:45)
[2016-11-25] MEDS: HABITROL TD SCH (09:46)
--- NOTE | 2016-11-25 11:28 | Progress Note ---
Assessment and Plan Stable cardiac status. Follow-up at my office in 1-2 weeks. An echocardiogram will be obtained at the office. He may go home on hydralazine. - Patient Problems (1) Sinus bradycardia Current Visit: Yes Status: Chronic (2) Lower GI bleed Current Visit: Yes Status: Acute (3) Hypertension Current Visit: Yes Status: Chronic Qualifiers: Hypertension type: essential hypertension Qualified Code(s): I10 - Essential (primary) hypertension Subjective Date of service: 11/25/16 Principal diagnosis: Asymptomatic sinus bradycardia Interval history: No new complaints. He remains in sinus bradycardia but stable. Objective Vital Signs Temp Pulse Pulse Resp Resp Resp BP 11/25/16 10:00 50 L 11/25/16 09:45 50 L 141/76 11/25/16 08:58 98.3 F 50 L 18 141/76 11/24/16 23:43 50 L 11/24/16 23:04 50 L 161/72 11/24/16 22:00 50 L 20 20 20 Pulse Ox 11/25/16 10:00 11/25/16 09:45 11/25/16 08:58 100 11/24/16 23:43 11/24/16 23:04 11/24/16 22:00 - Physical Examination General: No Apparent Distress HEENT: Positive: EOMI, Normocephaly, Mucus Membranes Moist Neck: Positive: neck supple, trachea midline Cardiac: Positive: Reg Rate and Rhythm, S1/S2 Lungs: Positive: clear to auscultation Neuro: Positive: Grossly Intact Abdomen: Positive: Soft, Active Bowel Sounds. Negative: Tender Skin: Positive: Clear. Negative: Rash Musculoskeletal: Normal Range of Motion Extremities: Present: normal. Absent: edema - Labs and Meds CBC 11/24/16 Range/Units 15:47 Hgb 13.2 (11.8-15.2) gm/dl Hct 39.7 (35.5-45.6) % - Imaging and Cardiology EKG: image reviewed - EKG Sinus rhythms and dysrhythmias: sinus bradycardia
[2016-11-25] MEDS ORDERED: PROTONIX PO SCH (22:00)
== END 2016-11-25 11:55 | disposition home or self-care (01) | DRG 379 ==
LOC: ED 09:33 → CC2 17:57
PROVIDERS: ADMIT Internal Medicine; ATTEND Hospitalist
PROC: 0DJ08ZZ Inspection of Upper Intestinal Tract, Via Natural or Artificial Opening Endoscopic (ICD-10-PCS; principal; 2016-11-24)
DX: K62.5 Hemorrhage of anus and rectum (principal); R00.1 Bradycardia, unspecified; I10 Essential (primary) hypertension; K21.9 Gastro-esophageal reflux disease without esophagitis; F17.200 Nicotine dependence, unspecified, uncomplicated; K29.70 Gastritis, unspecified, without bleeding; K26.9 Duodenal ulcer, unspecified as acute or chronic, without hemorrhage or perforation; K22.70 Barrett's esophagus without dysplasia; K29.80 Duodenitis without bleeding; K44.9 Diaphragmatic hernia without obstruction or gangrene
CPT/HCPCS: 36415; 74177; 80053; 81001; 82962; 83690; 84439; 84443; 84484; 85014; 85018; 85025; 85610; 85730; 93005; 93010; 96374; 96375; 96376; C9113; J0360; J2270; J7042; Q9967

== ENCOUNTER 2017-05-07 09:43 | Inpatient (IN) | payer MEDICARE ==
[2017-05-07 11:29] LABS: Basophils % (Auto) 0.5 % (0.0-1.8); Eosinophils # (Auto) 0.1 K/mm3 (0.0-0.4); Eosinophils % (Auto) 2.5 % (0.0-4.3); Hematocrit 39.2 % (35.5-45.6); Lymphocytes # (Auto) 2.4 K/mm3 (1.2-5.4); Mean Corpuscular HGB Conc 33 % (32-34); Mean Corpuscular Hemoglobin 28 pg (28-32); Mean Corpuscular Volume 84 fl (84-94); Monocytes # (Auto) 0.7 K/mm3 (0.0-0.8); Monocytes % (Auto) 12.7 % (0.0-7.3); Platelet Count 321 K/mm3 (140-440); Red Blood Count 4.67 M/mm3 (3.65-5.03)
[2017-05-07 11:41] LABS: INR 0.94 (0.87-1.13)
[2017-05-07 11:42] LABS: Partial Thromboplastin Time 30.2 Sec. (24.2-36.6)
[2017-05-07 11:52] LABS: Alanine Aminotransferase 19 units/L (7-56); Albumin 4.4 g/dL (3.9-5); BUN/Creatinine Ratio 15; Blood Urea Nitrogen 17 mg/dL (9-20); Calcium 8.8 mg/dL (8.4-10.2); Hemolysis Index 16; Lipase 53 units/L (13-60)
[2017-05-08] MEDS ORDERED: MORPHINE IV ONE (03:26)
[2017-05-08] MEDS ORDERED: PROTONIX IV ONE (03:27)
[2017-05-08 04:26] LABS: Hematocrit 37.2 % (35.5-45.6); Hemoglobin 12.2 gm/dl (11.8-15.2)
--- NOTE | 2017-05-08 04:57 | Emergency Department Report ---
HPI - General Chief Complaint: GI Bleed Time Seen by Provider: 05/08/17 03:07 - HPI HPI: This is a 66-year-old -[place] male presents to the emergency department with complaint of some rectal bleeding with bowel movements since this morning. He denies any rectal pain but complains of some lower abdominal cramping sensation. He denies any nausea, vomiting, fever. He has a history of diverticulosis and previous rectal bleeding in the past and had an admission for similar and 2014, 2016 and 2017. His primary care physician is Dr. Scruggs but he has not seemed to follow-up with a video game tester after any of these admissions. He also has a past medical history of GERD, hypertension. He did not take anything for her symptoms prior to presentation. No recent travel or sick contacts at home. ED Past Medical Hx - Past Medical History Hx Hypertension: Yes Hx Congestive Heart Failure: No Hx GERD: Yes Hx Asthma: No Hx COPD: No Additional medical history: DIVERTICULOSIS OF LARGE INTESTINE WITH HEMORRHAGE - Surgical History Past Surgical History?: No - Social History Smoking Status: Current Every Day Smoker Substance Use Type: Alcohol - Medications Home Medications: Home Medications Medication Instructions Recorded Confirmed Last Taken Type Nicotine [Habitrol] 21 mg TD QDAY #30 patch 11/25/16 05/08/17 Unknown Rx Pantoprazole [Protonix] 40 mg PO BID #60 tablet 11/25/16 05/08/17 Unknown Rx hydrALAZINE [Apresoline TAB] 100 mg PO BID 05/08/17 05/08/17 Unknown History ED Review of Systems ROS: Stated complaint: GI BLEED Other details as noted in HPI Comment: All other systems reviewed and negative Constitutional: denies: chills, fever Eyes: denies: eye pain, eye discharge, vision change ENT: denies: ear pain, throat pain Respiratory: denies: cough, shortness of breath, wheezing Cardiovascular: denies: chest pain, palpitations Gastrointestinal: abdominal pain, other (rectal bleeding). denies: vomiting Genitourinary: denies: urgency, dysuria Musculoskeletal: denies: back pain, joint swelling, arthralgia Skin: denies: rash, lesions Neurological: denies: headache, weakness, paresthesias Physical Exam - Physical Exam Vital Signs: Vital Signs 05/07/17 05/08/17 05/08/17 10:35 02:06 03:26 Temperature 97.8 F 97.4 F L 97.7 F Pulse Rate 64 55 L 47 L Respiratory 18 18 20 Rate Blood Pressure 129/63 134/78 Blood Pressure 151/74 [Left] O2 Sat by Pulse 100 97 98 Oximetry 05/08/17 05/08/17 03:27 04:20 Temperature Pulse Rate Respiratory 20 20 Rate Blood Pressure Blood Pressure [Left] O2 Sat by Pulse 98 Oximetry Physical Exam: GENERAL: The patient is well-developed well-nourished. HENT: Normocephalic. Atraumatic. Patient has moist mucous membranes. EYES: Extraocular motions are intact. Pupils equal reactive to light bilaterally. NECK: Supple. Trachea is midline. CHEST/LUNGS: Clear to auscultation. There is no respiratory distress noted. HEART/CARDIOVASCULAR: Regular. There is no tachycardia. There is no murmur. ABDOMEN: Abdomen is soft. No abdominal tenderness to palpation. Patient has normal bowel sounds. There is no abdominal distention. RECTAL: There is some gross maroon blood seen with digital rectal examination that is also positive on guaiac testing. SKIN: Skin is warm and dry. NEURO: The patient is awake, alert, and oriented. The patient is cooperative. The patient has no focal neurologic deficits. The patient has normal speech. MUSCULOSKELETAL: There is no tenderness or deformity. There is no limitation range of motion. There is no evidence of acute injury. ED Course Vital Signs 05/07/17 05/08/17 05/08/17 10:35 02:06 03:26 Temperature 97.8 F 97.4 F L 97.7 F Pulse Rate 64 55 L 47 L Respiratory 18 18 20 Rate Blood Pressure 129/63 134/78 Blood Pressure 151/74 [Left] O2 Sat by Pulse 100 97 98 Oximetry 05/08/17 05/08/17 03:27 04:20 Temperature Pulse Rate Respiratory 20 20 Rate Blood Pressure Blood Pressure [Left] O2 Sat by Pulse 98 Oximetry - Consultations Consultation #1: I spoke with the video game tester on-call, Dr. Mcgarry, who listened to the patient's case presentation and ED course and recommends admitting to the hospital where they will see him as a consult. 05/08/17 06:01 ED Medical Decision Making - Lab Data Result diagrams: 05/08/17 03:48 05/07/17 10:55 - Radiology Data Radiology results: report reviewed FINAL REPORT EXAM: CT ABDOMEN PELVIS W CON HISTORY: Abd pain TECHNIQUE: CT images are acquired through the Abdomen and Pelvis in arterial and delayed phases following intravenous administration of contrast. Transaxial, coronal and sagittal reformations are provided. PRIORS: 01/11/2015 FINDINGS: Partially visualized intrathoracic contents are unremarkable. The liver, gallbladder, pancreas, spleen, and adrenal glands are unremarkable. Kidneys show no worrisome lesions, hydronephrosis, or calculi. Urinary bladder is unremarkable. Small and large bowel are normal in caliber. Appendix is normal. No free air, free fluid, or lymphadenopathy identified. Aorta is normal in course and caliber. Superficial soft tissues are unremarkable. No acute or aggressive appearing skeletal findings. IMPRESSION: No acute findings in the abdomen or pelvis. Transcribed By: MB Dictated By: AYNCY CRAWFORD MD Electronically Authenticated By: YANCY CRAWFORD MD Signed Date/Time: 05/08/17 0110 - Medical Decision Making Patient presents with rectal bleeding with bowel movements for the past 24 hours for a total of 3 episodes. He has been in the emergency department for about 20 hours and his hemoglobin has dropped slightly from 13 down to 12.2. The rest of his labs are mostly unremarkable. He does have some gross blood on examination. CT of the abdomen and pelvis does not show any acute process. I spoke to gastroenterology who recommends admission and they will see him as a consult. The overnight hospitalist is aware but may give this admission to the AM hospitalist. - Differential Diagnosis diverticulosis, hemorrhoids, malignancy Critical Care Time: No Critical care attestation.: If time is entered above; I have spent that time in minutes in the direct care of this critically ill patient, excluding procedure time. ED Disposition Clinical Impression: Rectal bleeding, Lower GI bleed, Bradycardia Disposition: -09 OP ADMIT IP TO THIS HOSP Is pt being admited?: Yes Does the pt Need Aspirin: No Condition: Stable Referrals: CAROLYN SCRUGGS MD [Primary Care Provider] - 3-5 Days Forms: Accompanied Note Time of Disposition: 06:03
--- NOTE | 2017-05-08 05:12 | Cat Scan Report ---
FINAL REPORT EXAM: CT ABDOMEN PELVIS W CON HISTORY: Abd pain TECHNIQUE: CT images are acquired through the Abdomen and Pelvis in arterial and delayed phases following intravenous administration of contrast. Transaxial, coronal and sagittal reformations are provided. PRIORS: 01/11/2015 FINDINGS: Partially visualized intrathoracic contents are unremarkable. The liver, gallbladder, pancreas, spleen, and adrenal glands are unremarkable. Kidneys show no worrisome lesions, hydronephrosis, or calculi. Urinary bladder is unremarkable. Small and large bowel are normal in caliber. Appendix is normal. No free air, free fluid, or lymphadenopathy identified. Aorta is normal in course and caliber. Superficial soft tissues are unremarkable. No acute or aggressive appearing skeletal findings. IMPRESSION: No acute findings in the abdomen or pelvis.
--- NOTE | 2017-05-08 07:21 | History and Physical Report ---
History of Present Illness Date of examination: 05/08/17 Date of admission: 05/08/17 Chief complaint: Rectal bleeding and abdominal cramping since this morning History of present illness: Very pleasant 66-year-old -Swedish male patient with significant past medical history of diverticulosis with rectal bleeding in the past 2-3 years ago and his EGD and colonoscopy was negative presented to the emergency room with history of rectal bleeding since this morning. Patient denies nausea vomiting however complains of abdominal cramping and rectal bleeding No hematemesis, patient also has history of gastroesophageal reflux disease and hypertension Patient is hemodynamically stable, with stable H&H Past History Past Medical History: GERD, hypertension, other (diverticulosis,GI bleeding) Past Surgical History: No surgical history Social history: smoking, alcohol abuse Family history: hypertension Medications and Allergies Allergies Allergy/AdvReac Type Severity Reaction Status Date / Time No Known Allergies Allergy Verified 05/07/17 10:35 Home Medications Medication Instructions Recorded Confirmed Last Taken Type Nicotine [Habitrol] 21 mg TD QDAY #30 patch 11/25/16 05/08/17 Unknown Rx Pantoprazole [Protonix] 40 mg PO BID #60 tablet 11/25/16 05/08/17 Unknown Rx hydrALAZINE [Apresoline TAB] 100 mg PO BID 05/08/17 05/08/17 Unknown History Review of Systems Constitutional: no weight loss, no weight gain Ears, nose, mouth and throat: no nasal congestion, no nasal discharge Cardiovascular: no chest pain, no shortness of breath Respiratory: no cough, no cough with sputum Gastrointestinal: abdominal pain, BRBPR, no nausea, no vomiting Genitourinary Male: no dysuria, no hematuria Musculoskeletal: no myalgias, no arthritis Integumentary: no rash, no lesions Neurological: no paralysis, no weakness, no seizures Psychiatric: no anxiety, no depression Endocrine: no cold intolerance, no heat intolerance Hematologic/Lymphatic: no easy bruising, no easy bleeding Allergic/Immunologic: no urticaria, no allergic rhinitis Exam - Constitutional Vitals: Temp Pulse Resp BP Pulse Ox 97.7 F 50 L 18 111/73 96 05/08/17 06:00 05/08/17 06:00 05/08/17 06:00 05/08/17 06:00 05/08/17 06:00 General appearance: Present: no acute distress, well-nourished, obese - EENT Eyes: Present: PERRL, EOM intact - Neck Neck: Present: supple, normal ROM - Respiratory Respiratory effort: normal Respiratory: negative: rales, rhonchi, wheezing - Cardiovascular Rhythm: regular Heart Sounds: Present: S1 & S2 - Extremities Extremities: no ischemia, No edema - Abdominal General gastrointestinal: Present: soft, non-tender - Integumentary Integumentary: Present: clear, warm - Musculoskeletal Musculoskeletal: strength equal bilaterally - Psychiatric Psychiatric: appropriate mood/affect, cooperative - Neurologic Neurologic: CNII-XII intact, moves all extremities Results - Labs CBC & Chem 7: 05/08/17 03:48 05/07/17 10:55 Labs: Abnormal lab results 05/07/17 Range/Units 10:55 Lymph % (Auto) 43.0 H (13.4-35.0) % [place] % (Auto) 12.7 H (0.0-7.3) % Assessment and Plan --Lower GI bleeding rectal bleeding; Probably secondary to diverticulosis, closely monitor H&H and transfuse as needed, GI evaluation For possible endoscopy --History of diverticulosis; probably the cause of rectal bleeding, closely monitor --Gastric esophageal reflux disease; IV Protonix supportive care --Hypertension; moderate control, closely monitor blood pressures and adjust the medications as needed --DVT prophylaxis; no pharmacologic anticoagulation in view of GI bleeding, use SCDs --Ongoing tobacco use; smoking cessation counseling done advised nicotine patch as needed --History of alcohol use; counseling done advised to quit alcohol intake, closely monitor for any withdrawal symptoms --Full CODE STATUS Admit the patient to the hospital, follow GI evaluation, possible endoscopy if needed Plan of care discussed with the patient and his nurse
[2017-05-08] MEDS ORDERED: APRESOLINE IV PRN (08:00)
--- NOTE | 2017-05-08 10:36 | Gastroenterology Consultation ---
<JUSTINNEREYDAROCKY Orantes - Last Filed: 05/08/17 10:38> History of Present Illness - Reason for Consult Consult date: 05/08/17 GI bleed Requesting physician: LAUREN LORD - History of Present Illness Patient is a 66 y/o male with PMH of HTN and GERD who presented to ED with c/o rectal bleeding and lower abdominal cramping. Abd CT was negative. He is previously known to our service. He was first seen by our service in 2014 for hematochezia and underwent an EGD/colonoscopy. EGD was normal and colonoscopy showed diverticulosis. He was also seen 08/2015 and most recently in 11/2016 for GI bleed with hematochezia that was most likely diverticular in nature with H/H stable that resolved within 24 hours. This morning pt was resting on stretcher w/o acute distress. He reports BMs x 3 yesterday with bright red blood in toilet and on TP. No signs of active bleeding this am. No hematemesis or melena. Admits to mild lower abd discomfort described as cramping that is intermittent. Denies fever, wt loss, CP, SOB, dizziness, N/V, diarrhea, or constipation. No NSAID use. On daily PPI. No Fhx of GI cancers. Past History Past Medical History: GERD, hypertension, other (diverticulosis with hemorrage) Past Surgical History: No surgical history Social history: smoking, other (alcohol with 6 pack a week) Medications and Allergies Allergies Allergy/AdvReac Type Severity Reaction Status Date / Time No Known Allergies Allergy Verified 05/07/17 10:35 Home Medications Medication Instructions Recorded Confirmed Last Taken Type Nicotine [Habitrol] 21 mg TD QDAY #30 patch 11/25/16 05/08/17 Unknown Rx Pantoprazole [Protonix] 40 mg PO BID #60 tablet 11/25/16 05/08/17 Unknown Rx hydrALAZINE [Apresoline TAB] 100 mg PO BID 05/08/17 05/08/17 Unknown History Active Meds: Active Medications Hydralazine HCl (Apresoline) 10 mg IV Q4H PRN PRN Reason: Hypertension Pantoprazole Sodium (Protonix) 40 mg IV BID CECELIA Review of Systems - Review of Systems All systems: negative Gastrointestinal: abdominal pain (lower abd cramping), hematochezia Exam - Constitutional Vital Signs: Temp Pulse Resp BP Pulse Ox 97.7 F 51 L 16 118/78 96 05/08/17 06:00 05/08/17 08:20 05/08/17 08:20 05/08/17 08:20 05/08/17 08:20 General appearance: no acute distress, well-nourished - Respiratory Respiratory: bilateral: diminished (anterior) - Cardiovascular Rhythm: other (bradycardia) Heart Sounds: Present: S1 & S2 - Gastrointestinal General gastrointestinal: Present: soft, non-tender, non-distended, normal bowel sounds Rectal Exam: stool bloody (bright red blood) - Integumentary Integumentary: Present: warm, dry - Neurologic Neurological: alert and oriented x3 - Labs CBC & Chem 7: 05/08/17 03:48 05/07/17 10:55 Lab Results: Laboratory Results - last 24 hr 05/07/17 05/07/17 05/07/17 10:55 10:55 10:55 WBC 5.5 RBC 4.67 Hgb 13.0 Hct 39.2 MCV 84 MCH 28 MCHC 33 RDW 15.0 Plt Count 321 Lymph % (Auto) 43.0 H [place] % (Auto) 12.7 H Eos % (Auto) 2.5 Baso % (Auto) 0.5 Lymph # 2.4 [place] # 0.7 Eos # 0.1 Baso # 0.0 Seg Neutrophils % 41.3 Seg Neutrophils # 2.3 PT 13.0 INR 0.94 APTT 30.2 Sodium 142 Potassium 4.2 Chloride 105.4 Carbon Dioxide 23 Anion Gap 18 BUN 17 Creatinine 1.1 Estimated GFR > 60 BUN/Creatinine Ratio 15 Glucose 82 Calcium 8.8 Total Bilirubin 0.30 AST 19 ALT 19 Alkaline Phosphatase 53 Total Protein 7.2 Albumin 4.4 Albumin/Globulin Ratio 1.6 Lipase 53 Blood Type Antibody Screen 05/07/17 05/08/17 10:55 03:48 WBC RBC Hgb 12.2 Hct 37.2 MCV MCH MCHC RDW Plt Count Lymph % (Auto) [place] % (Auto) Eos % (Auto) Baso % (Auto) Lymph # [place] # Eos # Baso # Seg Neutrophils % Seg Neutrophils # PT INR APTT Sodium Potassium Chloride Carbon Dioxide Anion Gap BUN Creatinine Estimated GFR BUN/Creatinine Ratio Glucose Calcium Total Bilirubin AST ALT Alkaline Phosphatase Total Protein Albumin Albumin/Globulin Ratio Lipase Blood Type O POSITIVE Antibody Screen Negative Assessment and Plan 1.GI bleed 2.hematochezia 3.abd cramping -Abd CT negative -HGB 12.2-stable -continue to monitor H/H and transfuse as needed -no active signs of bleeding this am- currently hemodynamically stable -hold blood thinning medications -EGD 2014 was normal -colonoscopy 2014 showed blood in TI, diverticulosis, and polyps -etiology- most likely diverticular bleed -will schedule for colonoscopy in am -clear liquids today then NPO after MN -continue PPI and supportive care -will follow <TYLER CARDOZO - Last Filed: 05/08/17 16:34> Medications and Allergies Active Meds: Active Medications Bisacodyl (Dulcolax) 15 mg PO ONCE NR Stop: 05/08/17 17:00 Hydralazine HCl (Apresoline) 10 mg IV Q4H PRN PRN Reason: Hypertension Sodium Chloride (Nacl 0.9% 1000 Ml) 1,000 mls @ 75 mls/hr IV DIRECT CECELIA Nicotine (Habitrol) 14 mg TD QDAY CECELIA Pantoprazole Sodium (Protonix) 40 mg IV BID CECELIA Last Admin: 05/08/17 11:00 Dose: Not Given Polyethylene Glycol/Electrolytes (Golytely) 4,000 ml PO ONCE NR Stop: 05/09/17 02:00 Exam - Constitutional Vital Signs: Temp Pulse Resp BP Pulse Ox 97.7 F 54 L 16 172/76 95 05/08/17 06:00 05/08/17 14:11 05/08/17 14:11 05/08/17 14:11 05/08/17 14:11 - Labs CBC & Chem 7: 05/08/17 03:48 05/07/17 10:55 Lab Results: Laboratory Results - last 24 hr 05/08/17 03:48 Hgb 12.2 Hct 37.2 Assessment and Plan Patient seen and examined. Agree with note by Nereyda Aleman. Will plan for colonoscopy tomorrow, rest as above.
[2017-05-08] MEDS: PROTONIX IV SCH ×2 (11:00→22:39)
[2017-05-08] MEDS ORDERED: GOLYTELY PO NR ×2 (11:00→16:00)
[2017-05-08] MEDS ORDERED: NACL 0.9% 1000 ML 1,000 ML IV SCH (15:00)
[2017-05-08] MEDS ORDERED: DULCOLAX PO NR (16:00)
[2017-05-09 07:33] LABS: Basophils % (Auto) 0.5 % (0.0-1.8); Eosinophils # (Auto) 0.3 K/mm3 (0.0-0.4); Eosinophils % (Auto) 5.3 % (0.0-4.3); Hematocrit 34.4 % (35.5-45.6); Hemoglobin 11.2 gm/dl (11.8-15.2); Lymphocytes # (Auto) 2.5 K/mm3 (1.2-5.4); Lymphocytes % (Auto) 45.9 % (13.4-35.0); Mean Corpuscular HGB Conc 33 % (32-34); Mean Corpuscular Hemoglobin 27 pg (28-32); Mean Corpuscular Volume 84 fl (84-94); Monocytes # (Auto) 0.5 K/mm3 (0.0-0.8); Monocytes % (Auto) 8.9 % (0.0-7.3); Platelet Count 311 K/mm3 (140-440); Red Blood Count 4.12 M/mm3 (3.65-5.03); Red Cell Distribution Width 14.5 % (13.2-15.2)
[2017-05-09 07:47] LABS: BUN/Creatinine Ratio 15; Blood Urea Nitrogen 15 mg/dL (9-20); Calcium 8.1 mg/dL (8.4-10.2); Hemolysis Index 1
[2017-05-09] MEDS ORDERED: HABITROL TD SCH (10:00)
--- NOTE | 2017-05-09 10:46 | Gastroenterology Progress Note ---
Assessment and Plan 1.GI bleed 2.hematochezia 3.abd cramping H/H stable with no signs of active bleeding overnight or this am. Etiology most like 2/2 diverticular bleed. Recommend pt have a colonoscopy, however he did not complete prep overnight and is currently refusing to take another prep. He states he wants to eat and wishes to go home with the option to do colonoscopy as an outpatient. Recommend pt f/u in clinic in 1-2weeks to schedule outpatient colonoscopy. Okay for regular diet. Will sign off, please re-consult if needed. Subjective Date of service: 05/09/17 Principal diagnosis: rectal bleeding Interval history: Patient resting in bed w/o acute distress. He did not complete colon prep overnight with only half of it consumed. Solid stools noted per nursing. He denies any active signs of bleeding overnight or this am and is w/o GI complaints such as abd pain or N/V. Discussed with pt that since he did not complete his colon prep that colonoscopy for today would have to be cancelled and rescheduled for tomorrow with him repeating colon prep today. Pt is refusing to take prep today. He states he wants to eat and go home with option to have colonoscopy done as an outpatient. Objective - Constitutional Vitals: Temp Pulse Resp BP Pulse Ox 98.1 F 46 L 20 168/78 98 05/09/17 07:56 05/09/17 07:56 05/09/17 07:56 05/09/17 07:56 05/09/17 07:56 General appearance: no acute distress - Respiratory Respiratory: bilateral: CTA - Cardiovascular Rhythm: regular Heart Sounds: Present: S1 & S2 - Gastrointestinal General gastrointestinal: Present: soft, non-tender, non-distended, normal bowel sounds - Neurologic Neurological: alert and oriented x3 - Labs CBC & Chem 7: 05/09/17 06:50 05/09/17 06:50 Labs: Laboratory Results - last 24 hr 05/09/17 05/09/17 06:50 06:50 WBC 5.5 RBC 4.12 Hgb 11.2 L Hct 34.4 L MCV 84 MCH 27 L MCHC 33 RDW 14.5 Plt Count 311 Lymph % (Auto) 45.9 H [place] % (Auto) 8.9 H Eos % (Auto) 5.3 H Baso % (Auto) 0.5 Lymph # 2.5 [place] # 0.5 Eos # 0.3 Baso # 0.0 Seg Neutrophils % 39.4 L Seg Neutrophils # 2.2 Sodium 145 Potassium 3.9 Chloride 108.4 H Carbon Dioxide 22 Anion Gap 19 BUN 15 Creatinine 1.0 Estimated GFR > 60 BUN/Creatinine Ratio 15 Glucose 92 Calcium 8.1 L
[2017-05-09] MEDS: PROTONIX IV SCH (10:51)
[2017-05-09 11:35] VITALS: BP 144/63
--- NOTE | 2017-05-09 11:45 | Discharge Summary ---
Providers - Providers Date of Admission: 05/08/17 06:58 Date of discharge: 05/09/17 Attending physician: LAUREN LORD 05/08/17 07:22 Consult to Physician [CONS] Routine Consulting Provider: FANI MILES Reason For Exam: GI bleeding Place consult to:: Mellisa Aleman Notified:: yes Phone number called:: overhead page Was contact made?: Yes If yes, spoke with:: Mellisa Time called:: 08:52 Primary care physician: CAROLYN SCRUGGS Hospitalization Condition: Stable Disposition: DC- TO HOME OR SELFCARE Core Measure Documentation - Palliative Care Palliative Care/ Comfort Measures: Not Applicable - Core Measures Any of the following diagnoses?: none Exam - Constitutional Vitals: Temp Pulse Resp BP Pulse Ox 97.9 F 55 L 18 144/63 94 05/09/17 11:15 05/09/17 11:15 05/09/17 11:15 05/09/17 11:15 05/09/17 11:15 General appearance: Present: no acute distress, well-nourished - EENT Eyes: Present: PERRL, EOM intact - Neck Neck: Present: supple, normal ROM - Respiratory Respiratory effort: normal Respiratory: negative: rales, rhonchi, wheezing - Cardiovascular Rhythm: regular Heart Sounds: Present: S1 & S2 - Extremities Extremities: no ischemia, No edema - Abdominal General gastrointestinal: Present: soft, non-tender, non-distended, normal bowel sounds - Integumentary Integumentary: Present: clear, warm - Musculoskeletal Musculoskeletal: strength equal bilaterally - Psychiatric Psychiatric: appropriate mood/affect, cooperative - Neurologic Neurologic: CNII-XII intact, moves all extremities Plan Activity: no restrictions Diet: low salt Additional Instructions: If you notice any bleeding, contact M.D. or go to emergency room Follow up with: CAROLYN SCRUGGS MD [Primary Care Provider] - 3-5 Days TYLER CARDOZO MD [Staff Physician] - 7 Days Forms: Accompanied Note
--- NOTE | 2017-05-10 09:12 | Anesthesia Consultation ---
Anesthesia Consult and Med Hx - Pre-Operative Health Status ASA Pre-Surgery Classification: ASA3 Proposed Anesthetic Plan: MAC - Pulmonary Hx Smoking: Yes Hx Asthma: No COPD: No Hx Pneumonia: No - Cardiovascular System Hx Hypertension: Yes - Endocrine Hx End Stage Renal Disease: No - Other Systems Hx Alcohol Use: Yes
== END 2017-05-09 11:44 | disposition home or self-care (01) | DRG 379 ==
LOC: ED 09:43 → 4A 05-08 06:58 → 3A 05-08 14:53
PROVIDERS: ADMIT Internal Medicine; ATTEND Internal Medicine
DX: K57.31 Diverticulosis of large intestine without perforation or abscess with bleeding (principal); K21.9 Gastro-esophageal reflux disease without esophagitis; F17.200 Nicotine dependence, unspecified, uncomplicated; I10 Essential (primary) hypertension; Z71.6 Tobacco abuse counseling; Z72.89 Other problems related to lifestyle
CPT/HCPCS: 36415; 74177; 80048; 80053; 83690; 85014; 85018; 85025; 85610; 85730; 86850; 86900; 86901; 93005; 93010; 96374; 96375; 99406; C9113; J0360; J2270; J7030; Q9967